=== PATIENT | male | born 1985 | race Hispanic/Latino ===

== ENCOUNTER 2023-01-12 10:19 | Emergency (ER) | payer SELFPAY ==
[2023-01-12 10:27] VITALS: BP 100/74; PULSE 72; RESP 18; TEMP 36.7; O2SAT 100
--- NOTE | 2023-01-12 11:06 | ED.EYEPROB ---
HPI - Eye Problem General Chief complaint: Eye Problems Stated complaint: Eye Issues Time Seen by Provider: 01/12/23 10:25 Source: patient Mode of arrival: ambulatory Limitations: no limitations History of Present Illness HPI Narrative: Patient is a 37-year-old male who presents to the ED with report of left eye swelling. Patient reports having swelling of his left lower inner eyelid. He states he used a new face cream and may have gotten into his eye. He developed some mild itching on Saturday and noted the swelling and redness on . He does report pain at the site of the swelling of his left lower eyelid, denies eye pain or pain with eye movements. Denies any vision changes, fevers, recent cough or cold symptoms. He does not wear glasses or contacts. Related Data Home Medications Medication Instructions Recorded Confirmed No Home Medications 01/12/23 01/12/23 Allergies Allergy/AdvReac Type Severity Reaction Status Date / Time No Known Allergies Allergy Verified 01/12/23 10:35 Review of Systems Review of Systems: CONSTITUTIONAL: Denies fever, chills, or sweats. EYES: See HPI. ENT: Denies rhinorrhea, congestion, sore throat. NEUROLOGIC: Denies headache. All systems reviewed & are unremarkable except as noted in HPI and below PMFSH Past Medical History Medical History (Updated 01/12/23 @ 13:51 by Myriam Fischer PA-C) No pertinent past medical history Surgical History Surgical History (Updated 01/12/23 @ 13:51 by Myriam Fischer PA-C) No pertinent past surgical history Social History Social History (Updated 01/12/23 @ 13:51 by Myriam Fischer PA-C) Smoking status: Never smoker Exam Narrative: GENERAL: Well appearing, obese, non-toxic, in no acute distress. HEAD: Normocephalic, atraumatic. EYES: PERRLA/EOMI. No significant discomfort with EOM. R conjunctiva clear. Left conjunctiva mildly injected. Localized area of swelling, erythema, tenderness to the left lower inner eyelid with central pustule/head present on lid margin in center of swelling. No drainage present. Some watery tearing from L eye, no purulent discharge. No swelling to outer lower eyelid or upper eyelid. No chemosis. NECK: Supple. No adenopathy, no masses. RESPIRATORY: Airway patent, respirations nonlabored. CARDIOVASCULAR: Regular rate and rhythm without murmurs, rubs, or gallops. Radial pulses 2+ and equal bilaterally. MUSCULOSKELETAL: Moves all extremities. Strength/ROM intact without gross deformities. SKIN: Warm, dry, normal color. No rashes. NEURO: A&O X3. Speech clear. Cranial nerves II-XII grossly intact. No ataxic movements. PSYCHIATRIC: Appropriate mood and affect. Normal interaction. Course Vital Signs Vital signs: Vital Signs Temperature 98.1 F 01/12/23 10:27 Pulse Rate 72 01/12/23 10:27 Respiratory Rate 18 01/12/23 10:27 Blood Pressure 100/74 01/12/23 10:27 Pulse Oximetry 100 01/12/23 10:27 Oxygen Delivery Room Air 01/12/23 10:27 Temperature 98.1 F 01/12/23 10:27 Pulse Rate 72 01/12/23 10:27 Respiratory Rate 18 01/12/23 10:27 Blood Pressure 100/74 01/12/23 10:27 Pulse Oximetry 100 01/12/23 10:27 Oxygen Delivery Room Air 01/12/23 10:27 MDM - Eye Problem MDM Narrative Medical decision making narrative: Patient presented to ED with several day history of left lower eyelid swelling, irritation. Exam consistent with stye. Head of stye present on lid margin, localized erythema and swelling. No significant pain with extraocular movements to suggest preseptal/orbital cellulitis. No surrounding periorbital swelling, only localized swelling. No reported fevers or other systemic signs of infection. No vision changes. Visual acuity equal bilaterally. No chemosis or proptosis. I did perform fluorescein staining with Cox lamp examination and no signs of conjunctival or corneal abrasion noted. Patient will be discharged. I discussed samaria
== END 2023-01-12 12:07 | disposition home or self-care (01) ==
PROVIDERS: Emergency Provider Physician Assistant
DX: H00.015 Hordeolum externum left lower eyelid (principal)
CPT/HCPCS: 99283

== ENCOUNTER 2023-02-05 10:46 | Emergency (ER) | payer SELFPAY ==
--- NOTE | ~2023-02-05 | XR_ITS ---
EXAMINATION: XR chest 2V Exam Date/Time: 02/05/2023 14:10 CDT HISTORY: sob RIGHT POSTERIOR CP Comparison: None available. RESULT: Lines, tubes, and devices: None. Lungs and pleura: Low lung volumes with crowding, otherwise clear. Cardiomediastinal silhouette: Unremarkable. Other: No acute osseous or upper abdominal finding. IMPRESSION: No acute cardiopulmonary process. Reviewed, dictated and finalized at location K.
--- NOTE | ~2023-02-05 | CT_ITS ---
EXAMINATION: CT abdomen pelvis w con DATE: 02/05/2023 13:58 INDICATION: Right upper quadrant and epigastric abdominal pain. Nausea. TECHNIQUE: Computed tomography (CT) of the abdomen and pelvis was performed with 100 mL Omnipaque 350 intravenous contrast. Automated exposure control and iterative reconstruction technique were employe d. The dose-length product was 975.06 mGy-cm. COMPARISON: None. FINDINGS: The visualized portions of the lung bases demonstrate mild atelectasis. No pleural effusion . The heart size is normal. No pericardial effusion. The liver, gallbladder, spleen, pancreas, adrena l glands, and left kidney are normal. There is a 4 mm stone in right kidney. There are no dilated loo ps of bowel. The appendix is normal. There are no pathologically enlarged lymph nodes. There is no fr ee intraperitoneal fluid. There are benign bone islands in the pelvis. There is mild chronic anterior wedging of T7 vertebral body. IMPRESSION: 1. No etiology for the patient's symptoms. Reviewed, dictated and finalized at location A.
[2023-02-05 11:27] VITALS: BP 111/69; PULSE 67; RESP 14; TEMP 37.1; O2SAT 100
--- NOTE | 2023-02-05 11:55 | PC.NURSE ---
Pt states at this time time he can not give urine sample.
[2023-02-05 11:59] LABS: Basophils Absolute Auto 0.1 K/mm3 (0.0-0.1); Basophils Percent Auto 0.8 % (0.2-1.2); Eosinophils Absolute Auto 0.4 K/mm3 (0-0.3); Eosinophils Percent Auto 4.8 % (0-4.4); Hematocrit 46.9 % (42.0-52.0); Hemoglobin 15.8 g/dL (14.0-18.0); Immature Granulocyte Absolute 0.05 K/mm3 (0.00-0.031); Immature Granulocyte Percent A 0.6 % (0-0.5); Lymphocytes Absolute Auto 2.39 K/mm3 (0.9-3.2); Mean Corpuscular HGB Conc 33.7 g/dl (32-36); Mean Corpuscular Hemoglobin 28.3 pg (26-34); Mean Corpuscular Volume 84.1 fl (80-100); Mean Platelet Volume 9.5 fl (7.4-10.4); Monocytes Absolute Auto 0.5 K/mm3 (0.1-0.6); Monocytes Percent Auto 6.4 % (2.6-8.5); Neutrophils Absolute Auto 4.6 K/mm3 (1.3-6.7); Neutrophils Percent Auto 57.4 % (45.5-73.1); Platelet Count Result 274 k/mm3 (150-375); Red Blood Count 5.58 M/mm3 (4.6-6.20); Red Cell Distribution Width 13.2 % (11.5-14.5)
[2023-02-05 12:09] LABS: Alanine Aminotransferase 43 U/L (6-50); Albumin Level 4.3 g/dL (3.5-5.1); Alkaline Phosphatase 99 U/L (38-126); Anion Gap 6 mmol/L (8-16); Aspartate Amino Transferase 28 U/L (17-59); Bilirubin,Total 0.5 mg/dL (0.2-1.3); Blood Urea Nitrogen 16 mg/dL (9-20); Carbon Dioxide 29 mmol/L (22-30); Chloride 106 mmol/L (98-107); Estimated CRCL calculation 129 ml/min; Estimated Glomerular Filt Rate > 60; Glucose 112 mg/dL (65-110); Lipase 52 U/L (23-300); Potassium 3.7 mmol/L (3.4-5.0); Sodium 141 mmol/L (137-145)
[2023-02-05 12:45] VITALS: BP 123/82; PULSE 64; RESP 16; O2SAT 100
[2023-02-05 13:35] VITALS: BP 134/85; PULSE 75; RESP 18
--- NOTE | 2023-02-05 13:39 | ED.ABDPAIN ---
HPI - Abdominal Pain General Chief Complaint: Abdominal Pain Stated Complaint: flank pain Time Seen by Provider: 02/05/23 12:05 History of Present Illness HPI narrative: 37-year-old male with a history of GERD presenting with multiple complaints. Patient is Polish-speaking and history was obtained via end trimmer. Patient states that he has had intermittent abdominal pain for several days. States that it is mostly in his right upper quadrant and seems to be worsened by fatty foods. He also complains that he has been feeling short of breath. States that he also has pain in his epigastrium and sometimes it goes into his chest. States that he has been very constipated lately. States that he went to a clinic about a month ago and they told him there was something wrong with his liver but he is unsure what it was. Denies vomiting, dysuria, hematuria, diarrhea. No fevers or chills, cough, numbness or weakness, vision changes. Related Data Allergies Allergy/AdvReac Type Severity Reaction Status Date / Time No Known Allergies Allergy Verified 02/05/23 11:42 Review of Systems Review of Systems: All systems reviewed & are unremarkable except as noted in HPI and below PMFSH Past Medical History Medical History No pertinent past medical history Surgical History Surgical History No pertinent past surgical history Social History Social History Smoking status: Never smoker Exam Narrative: GENERAL: Well-appearing, well-nourished, and in no acute distress. HEAD: Normocephalic, atraumatic. EYES: PERRLA and EOMI. ENT: Nares clear, no rhinorrhea or epistaxis. Mucous membranes moist. NECK: Supple. CHEST: Clear to auscultation. No respiratory distress. HEART: Regular rate and rhythm ABDOMEN: Soft, +RUQ tenderness, mild LLQ tenderness, no guarding or rebound EXTREMITIES: Normal range of motion. No edema. SKIN: Warm, dry, no rash. NEURO: No focal deficits. Alert and oriented x3. PSYCH: Normal mood and affect. Course Vital Signs Vital signs: Vital Signs Temperature 98.7 F 02/05/23 11:27 Pulse Rate 67 02/05/23 11:27 Respiratory Rate 14 02/05/23 11:27 Blood Pressure 111/69 02/05/23 11:27 Pulse Oximetry 100 02/05/23 11:27 Oxygen Delivery Room Air 02/05/23 11:27 Temperature 98.7 F 02/05/23 11:27 Pulse Rate 64 02/05/23 14:10 Respiratory Rate 16 02/05/23 14:10 Blood Pressure 113/83 02/05/23 14:10 Pulse Oximetry 100 02/05/23 14:10 Oxygen Delivery Room Air 02/05/23 11:27 MDM - Abdominal Pain MDM Narrative Medical decision making narrative: Patient is a 37-year-old male with a history of GERD presenting with abdominal pain, constipation, shortness of breath. Vitals are within normal limits. Patient is well-appearing and in no acute distress. Plan for labs, EKG, CT abdomen pelvis, chest x-ray. We will treat with fluids, Pepcid, Tylenol, Toradol. Blood work is unremarkable. Normal lipase, normal electrolytes, normal renal function. No leukocytosis. CT abdomen pelvis shows no acute abnormalities. No inflammatory processes or obstructive processes. EKG per my interpretation shows normal sinus rhythm, normal axis and intervals, no ST elevations or depressions. Troponin is undetectable. Chest x-ray shows no acute abnormalities. No consolidations or effusions. On reevaluation, the patient is resting comfortably. States that his pain has improved. States that he has been taking omeprazole for several weeks because he was told there is too much acid in his stomach. Advised that he continue taking this. We will also get the patient started on a bowel regimen given his complaints of ongoing constipation. Advised that he follow-up closely with primary care and provided referral for this. Appropriate return precaution
--- NOTE | 2023-02-05 13:40 | ECG_ITS ---
Measurements Intervals [place] Rate: 66 P: 2 ME: 139 QRS: -10 QRSD: 81 T: 1 QT: 368 QTc: 386 Interpretive Statements SINUS RHYTHM BORDERLINE T WAVE ABNORMALITY- INFERIOR LEADS BASELINE ARTIFACT- I, III, AVL BORDERLINE ECG NO PREVIOUS ECG AVAILABLE FOR COMPARISON Electronically Signed On 02-05-2023 14:04:12 CDT by Yaron Tian D.O.
[2023-02-05 14:02] LABS: Appearance Urine Clear (Clear); Bacteria Urine None Seen /hpf; Bilirubin Urine Negative (Negative); Blood Urine Negative (Negative); Color Urine Yellow (Yellow); Glucose Urine UA Negative (Negative); Ketones Urine Negative (Negative); Leukocyte Esterase Ur Negative LEU/UL (Negative); Nitrate Urine Negative (Negative); Non Pathogenic Casts 0-2; Protein Urine Trace mg/dL (Negative); RBC Urine 0-2 /hpf (0-2); Specific Grav Ur 1.021 (1.001-1.035); Squamous Epithelial Cell Urine None seen /hpf (Few); Urobilinogen Urine 0.2 mg/dL (<2.0); WBC Urine 0-5 /hpf
[2023-02-05] MEDS: SODIUM CHLORIDE 0.9% IV 1,000 ML 999 ML IV CONT (14:04)
[2023-02-05] MEDS: FAMOTIDINE 20 MG/2 ML VIAL IV PUSH (14:04)
[2023-02-05 14:06] VITALS: BP 123/78; PULSE 64; RESP 16; O2SAT 100
[2023-02-05 14:07] LABS: Add Urine Microscopic? YES
[2023-02-05 14:10] VITALS: BP 113/83; PULSE 64; RESP 16; O2SAT 100
[2023-02-05 14:20] LABS: Troponin I < 0.012 ng/mL (0.000-0.034)
[2023-02-05] MEDS: KETOROLAC 15 MG/ML VIAL (*BKC) IV PUSH (14:41)
== END 2023-02-05 16:50 | disposition home or self-care (01) ==
PROVIDERS: Emergency Medicine; Emergency Provider Emergency Medicine
DX: K59.00 Constipation, unspecified (principal); K21.9 Gastro-esophageal reflux disease without esophagitis
CPT/HCPCS: 36415; 71046; 74177; 80053; 81001; 83690; 84484; 85025; 93005; 96361; 96374; 96375; 99284; J0131; J1885; J7030; Q9967

== ENCOUNTER 2025-06-29 13:42 | Emergency (ER) | payer SELFPAY ==
--- NOTE | ~2025-06-29 | XR_ITS ---
HISTORY: back pain BILATERALLY NO FALL NO TRAUMA COMPARISON: None. Reference is made to a CT examination of the abdomen and pelvis performed on 023 TECHNIQUE: 2 view lumbar spine. FINDINGS: Lumbar vertebral bodies are normally aligned. There are 5 non-rib bearing lumbar vertebral bodies. Disc spaces and vertebral body heights are well maintained. There are no lytic or sclerotic lesions. Paraspinal soft tissues are unremarkable IMPRESSION: Unremarkable lumbar spine series. Reviewed, dictated and finalized at location A.
[2025-06-29 13:56] VITALS: BP 129/84; PULSE 57; RESP 16; TEMP 36.3; O2SAT 99
[2025-06-29 14:09] VITALS: BP 129/84; PULSE 57; RESP 14; TEMP 36.6; O2SAT 99
--- NOTE | 2025-06-29 16:11 | ED.GENADULT ---
HPI - General Adult General Chief complaint: Extremity Injury, Upper Stated complaint: L shoulder pain/injury, 1month ago Time Seen by Provider: 06/29/25 14:08 Source: patient Mode of arrival: ambulatory Limitations: no limitations History of Present Illness HPI narrative: 40-year-old otherwise healthy here with the complaints of low back pain which has been ongoing for several days. 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 He denies any bladder or bowel incontinence no history of trauma Onset (ago): week(s) Location: back (Lumbar) Radiation: non-radiation Severity: moderate Quality: aching Pain Consistency: intermittent Relieving factors: none Exacerbating factors: none Associated symptoms: denies other symptoms Treatments prior to arrival: none Related Data Allergies Allergy/AdvReac Type Severity Reaction Status Date / Time No Known Allergies Allergy Verified 02/05/23 11:42 Review of Systems Review of Systems: All systems reviewed & are unremarkable except as noted in HPI and below Constitutional: Constitutional: Reports no additional constitutional complaints Eyes: Eyes: Reports no additional eye complaints ENT: Reports system reviewed and no additional complaints, except as documented Cardiovascular: Cardiovascular: Reports no additional cardiovascular complaints Respiratory: Respiratory: Reports no additional respiratory complaints Gastrointestinal: Gastrointestinal: Reports no additional gastrointestinal complaints Musculoskeletal: Musculoskeletal: Reports as per HPI PMF Past Medical History Medical History No pertinent past medical history Surgical History Surgical History No pertinent past surgical history Social History Social History Smoking status: Never smoker Exam Narrative: GENERAL: Well-appearing, well-nourished, and in no acute distress. HEAD: Normocephalic, atraumatic. EYES: PERRLA and EOMI. ENT: Nares clear, no rhinorrhea or epistaxis. Mucous membranes moist. NECK: Supple. CHEST: Clear to auscultation. No respiratory distress. HEART: Regular rate and rhythm. No murmur heard. Normal peripheral pulses. EXTREMITIES: Normal range of motion. No edema. No vertebral point tenderness SKIN: Warm, dry, no rash. NEURO: No focal deficits. Alert and oriented x3. PSYCH: Normal mood and affect. Course Course Emergency Course: Notified patient about his x-ray findings advised him to take Tylenol ibuprofen for pain Vital Signs Vital signs: Vital Signs Temperature 36.3 C L 06/29/25 13:56 Pulse Rate 57 L 06/29/25 13:56 Respiratory Rate 16 06/29/25 13:56 Blood Pressure 129/84 06/29/25 13:56 Pulse Oximetry 99 06/29/25 13:56 Temperature 36.6 C 06/29/25 14:09 Pulse Rate 57 L 06/29/25 14:09 Respiratory Rate 14 06/29/25 14:09 Blood Pressure 129/84 06/29/25 14:09 Pulse Oximetry 99 06/29/25 14:09 Oxygen Delivery Room Air 06/29/25 14:09 Medical Decision Making Vital Signs Vital Signs: Vital Signs Temperature 36.3 C L 06/29/25 13:56 Pulse Rate 57 L 06/29/25 13:56 Respiratory Rate 16 06/29/25 13:56 Blood Pressure 129/84 06/29/25 13:56 Pulse Oximetry 99 06/29/25 13:56 Temperature 36.6 C 06/29/25 14:09 Pulse Rate 57 L 06/29/25 14:09 Respiratory Rate 14 06/29/25 14:09 Blood Pressure 129/84 06/29/25 14:09 Pulse Oximetry 99 06/29/25 14:09 Oxygen Delivery Room Air 06/29/25 14:09 Imaging Data Radiologist's impression: ITS Impressions Lumbar Spine X-Ray 06/29/25 16:04 IMPRESSION: Unremarkable lumbar spine series. Discharge Plan Discharge Clinical Impression: Lumbar spine strain Qualifiers: Encounter type: initial encounter Qualified Code(s): S39.012A - Strain of muscle, fascia and tendon of lower back, initial encounter Patient Disposition: Home Condition: Stable Instructions: Antibiotic Form, Low Back Strain (ED) Patient Language: Yi Prescriptions: New ibuprofen 600 mg tablet 600 mg PO TID PRN (Reason: pain) Qty: 30 0RF No Action polyethylene glycol 3350 [Miralax] 17 gram/dose powder 17 g PO DAILY Qty: 238 0RF Follow-up/Referrals: Milind Jimenez MD [Physician] - UNKNOWN,DOCTOR [Primary Care Provider] - Time of Disposition: 16:15
[2025-06-29 16:18] VITALS: BP 139/86; PULSE 87; RESP 14; O2SAT 99
== END 2025-06-29 16:19 | disposition home or self-care (01) ==
PROVIDERS: Emergency Provider Family Medicine
DX: S39.012A Strain of muscle, fascia and tendon of lower back, initial encounter (principal); X58.XXXA Exposure to other specified factors, initial encounter
CPT/HCPCS: 72100; 99283